=== PATIENT | female | born 1990 | race Caucasian/White ===

== ENCOUNTER 2018-04-21 17:41 | Inpatient (IN) | payer MEDICAID ==
[~2018-04-21] VITALS: Ht 167.6 cm; Wt 61.1 kg
[2018-04-21] MEDS ORDERED: ACETAMINOPHEN 500 MG TABLET ONE (18:17)
[2018-04-21] MEDS ORDERED: SODIUM CHLORIDE FLUSH 10ML SYR IVF ONE (18:30)
[2018-04-21] MEDS ORDERED: ACETAMINOPHEN 500 MG TABLET PO ONE (18:30)
--- NOTE | 2018-04-21 18:43 | NUR ---
Pt presents for erythma and swelling to L buttock x 3 days after injecting meth. Pt states chills [employer]. Mild fever.
[2018-04-21 19:00] LABS: ALBUMIN 2.7 g/dL (3.4-5.0); ANION GAP 8 mmol/L (5-15); CALCIUM 8.2 mg/dL (8.5-10.1); CHLORIDE 103 mmol/L (98-107)
[2018-04-21 19:24] LABS: MEAN CORPUSCULAR HGB CONC 30.4 g/dL (32.4-35.8); MEAN CORPUSCULAR VOLUME 62.3 fL (80-100); MEAN PLATELET VOLUME 6.8 fL (7.4-10.4); PLATELET COUNT 771 x10^3/uL (130-400); RED BLOOD COUNT 4.93 x10^6/uL (3.82-5.3); RED CELL DISTRIBUTION WIDTH 20.9 % (9.6-15.2)
[2018-04-21 19:25] LABS: MD YES
[2018-04-21 19:27] LABS: BAND#(MANUAL) 3.22 x10^3/uL; BANDS%(MANUAL) 23 % (0-7); BASOS#(MANUAL) 0.42 x10^3/uL (0-0.1); BASOS% (MANUAL) 3 % (0-1); EOS#(MANUAL) 0.14 x10^3/uL (0.0-0.4); EOS% (MANUAL) 1 % (1-7); LYMPHS% (MANUAL) 15 % (22-44); MONOS#(MANUAL) 0.98 x10^3/uL (0.3-2.7); MONOS% (MANUAL) 7 % (2-9); SEG#(MANUAL) 7.14 x10^3/uL (1.8-6.8); SEGS% (MANUAL) 51 % (42-75)
[2018-04-21 19:30] LABS: ANISOCYTOSIS 1+
[2018-04-21] MEDS ORDERED: VANCOMYCIN PER PHARMACY IV ONE (19:30)
[2018-04-21] MEDS ORDERED: CEFTRIAXONE PMX 1GM/50ML 50 ML IVPB ONE (19:30)
[2018-04-21 19:31] LABS: HYPOCHROMIA 2+; MICROCYTOSIS 2+
[2018-04-21 19:34] LABS: OVALOCYTES 1+; POLYCHROMASIA 1+
[2018-04-21 19:36] LABS: <PLATELET ESTIMATE> INCREASED; LARGE PLATELETS 1+; TOXIC GRAN 1+
[2018-04-21] MEDS ORDERED: CEFTRIAXONE PMX 1GM/50ML 50 ML ONE (19:56)
[2018-04-21] MEDS ORDERED: PHARMACOKINETIC CONSULTATION MC ONE (20:00)
[2018-04-21] MEDS ORDERED: VANCOMYCIN PMX 1GM/200ML 200 ML IV ONE (20:00)
--- NOTE | 2018-04-21 20:02 | NUR ---
REPORT RECEIVED FROM MINO MONIQUE, ASSUMING CARE AT THIS TIME. LAB AT BEDSIDE FOR SECOND CULTURE DRAW, ABX TO BE ADMIN AFTER DRAW. FAMILY AT BEDSIDE. CALL LIGHT WITHIN REACH. AWAITING OR
--- NOTE | 2018-04-21 20:34 | NUR ---
MD AT BEDSIDE FOR ASSESSMENT. AWARE OF LOW BP. ORDERS RECEIVED.
[2018-04-21] MEDS ORDERED: GUAIFENESIN/COD200MG-20MG/10ML LIQUID PO PRN (21:00)
[2018-04-21] MEDS ORDERED: hydrALAzine 20 MG/ML, 1ML IVPush PRN (21:00)
[2018-04-21] MEDS ORDERED: ONDANSETRON 2MG/ML, 2ML IVPush PRN (21:00)
[2018-04-21] MEDS ORDERED: SODIUM CHLORIDE 0.9% 1,000ML IVBOLUS ONE (21:00)
--- NOTE | 2018-04-21 21:04 | NUR ---
REPORT CALLED TO JEOVANNY RN, PT READY TO TRANSPORT UP TO FLOOR.
[2018-04-21 21:06] LABS: ABSOLUTE RETICS # 0.063 x10^6/uL (0.5-2.5); RED BLOOD COUNT 4.92 x10^6/uL (3.82-5.3); RETICULOCYTE COUNT % 1.27 % (0.5-1.5)
--- NOTE | 2018-04-21 21:13 | NUR ---
SURGERY MD TO BEDSIDE FOR ASSESSMENT. PLAN TO I&D AT BEDSIDE TOMORROW AM WITH POSSIBLE OR. BP INCREASING WITH BOLUS. VSS.
[2018-04-21 21:45] VITALS: BP 96/50
[2018-04-21] MEDS: D5%-0.45NACL+KCL 20MEQ 1,000 ML IV SCH (22:13)
[2018-04-21] MEDS: AMPICILLIN/SULBACTAM 3 GM in SODIUM CHLORIDE 0.9% 100 ML IV SCH (22:13)
[2018-04-21] MEDS: KETOROLAC 30 MG/1 ML IV PRN (22:14)
[2018-04-22] MEDS: NICOTINE 14MG/24 HR PATCH.TD24 TD SCH (00:56)
[2018-04-22 01:49] VITALS: BP 90/44
[2018-04-22] MEDS: AMPICILLIN/SULBACTAM 3 GM in SODIUM CHLORIDE 0.9% 100 ML IV SCH ×4 (04:06→23:01)
[2018-04-22] MEDS ORDERED: LIDOCAINE PF 2%, 5ML INFIL ONE (05:00)
[2018-04-22 05:51] LABS: MEAN CORPUSCULAR HEMOGLOBIN 19.2 pg (27.0-34.8); MEAN CORPUSCULAR HGB CONC 30.8 g/dL (32.4-35.8); MEAN CORPUSCULAR VOLUME 62.4 fL (80-100); PLATELET COUNT 595 x10^3/uL (130-400); RED BLOOD COUNT 4.59 x10^6/uL (3.82-5.3); RED CELL DISTRIBUTION WIDTH 21.2 % (9.6-15.2)
[2018-04-22 05:56] LABS: ANION GAP 6 mmol/L (5-15); CHLORIDE 108 mmol/L (98-107)
[2018-04-22 05:59] LABS: CREATININE 0.52 mg/dL (0.55-1.02)
[2018-04-22 06:01] LABS: MD YES
[2018-04-22 06:03] LABS: BAND#(MANUAL) 1.31 x10^3/uL; BANDS%(MANUAL) 8 % (0-7); BASOS#(MANUAL) 0.16 x10^3/uL (0-0.1); BASOS% (MANUAL) 1 % (0-1); EOS#(MANUAL) 1.31 x10^3/uL (0.0-0.4); EOS% (MANUAL) 8 % (1-7); LYMPH#(MANUAL) 3.12 x10^3/uL (1-3.4); LYMPHS% (MANUAL) 19 % (22-44); MONOS#(MANUAL) 0.82 x10^3/uL (0.3-2.7); MONOS% (MANUAL) 5 % (2-9); SEG#(MANUAL) 9.68 x10^3/uL (1.8-6.8); SEGS% (MANUAL) 59 % (42-75)
[2018-04-22 06:06] LABS: ANISOCYTOSIS 1+; HYPOCHROMIA 2+; MICROCYTOSIS 2+; OVALOCYTES 1+; POLYCHROMASIA 1+
[2018-04-22 06:08] LABS: <PLATELET ESTIMATE> INCREASED; LARGE PLATELETS 1+
[2018-04-22] MEDS: D5%-0.45NACL+KCL 20MEQ 1,000 ML IV SCH ×2 (06:42→20:20)
[2018-04-22 06:46] VITALS: BP 114/58
[2018-04-22] MEDS: KETOROLAC 30 MG/1 ML IV PRN ×2 (07:33→20:26)
[2018-04-22] MEDS ORDERED: ACETAMINOPHEN 325 MG TABLET PO PRN (09:30)
[2018-04-22] MEDS ORDERED: morphine SULFATE/PF 1 MG/ML, 10ML IV ONE (10:30)
[2018-04-22] MEDS ORDERED: MORPHINE SULFATE 4 MG/ML, 1ML ONE (10:55)
[2018-04-22 12:54] VITALS: BP 95/55
[2018-04-22] MEDS: IRON SUCROSE COMPLEX 100MG/5ML IV SCH (15:27)
[2018-04-22] MEDS: OXYcodone/APAP 5/325MG TABLET PO PRN (15:27)
[2018-04-22 19:49] VITALS: BP 98/56
[2018-04-23] MEDS: NICOTINE 14MG/24 HR PATCH.TD24 TD SCH (01:26)
[2018-04-23] MEDS: OXYcodone/APAP 5/325MG TABLET PO PRN ×3 (01:28→20:50)
[2018-04-23 02:40] VITALS: BP 95/59
[2018-04-23] MEDS: D5%-0.45NACL+KCL 20MEQ 1,000 ML IV SCH ×2 (04:25→10:57)
[2018-04-23] MEDS: AMPICILLIN/SULBACTAM 3 GM in SODIUM CHLORIDE 0.9% 100 ML IV SCH ×4 (04:26→22:54)
[2018-04-23 05:44] LABS: MEAN CORPUSCULAR HEMOGLOBIN 19.2 pg (27.0-34.8); MEAN CORPUSCULAR HGB CONC 30.5 g/dL (32.4-35.8); MEAN CORPUSCULAR VOLUME 62.9 fL (80-100); PLATELET COUNT 617 x10^3/uL (130-400); RED CELL DISTRIBUTION WIDTH 21.6 % (9.6-15.2)
[2018-04-23 06:38] LABS: MD YES
[2018-04-23 06:40] LABS: BAND#(MANUAL) 0.25 x10^3/uL; BANDS%(MANUAL) 2 % (0-7)
[2018-04-23 06:41] LABS: ANISOCYTOSIS 1+; EOS#(MANUAL) 0.37 x10^3/uL (0.0-0.4); EOS% (MANUAL) 3 % (1-7); LYMPH#(MANUAL) 2.21 x10^3/uL (1-3.4); LYMPHS% (MANUAL) 18 % (22-44); MICROCYTOSIS 2+; MONOS#(MANUAL) 0.62 x10^3/uL (0.3-2.7); MONOS% (MANUAL) 5 % (2-9); SEG#(MANUAL) 8.86 x10^3/uL (1.8-6.8); SEGS% (MANUAL) 72 % (42-75)
[2018-04-23 06:42] LABS: <PLATELET ESTIMATE> INCREASED; <PLT MORPHOLOGY> NORMAL PLT MORPH; HYPOCHROMIA 2+; OVALOCYTES 1+; POLYCHROMASIA 1+
[2018-04-23 07:30] VITALS: BP 95/58
[2018-04-23] MEDS ORDERED: MORPHINE SULFATE 4 MG/ML, 1ML ONE (13:05)
[2018-04-23] MEDS: MORPHINE SULFATE 4 MG/ML, 1ML IVPush PRN (13:07)
[2018-04-23 14:15] VITALS: BP 101/62
[2018-04-23] MEDS: IRON SUCROSE COMPLEX 100MG/5ML IV SCH (16:17)
[2018-04-23] MEDS ORDERED: PHARMACOKINETIC MONITORING MC PRN (16:30)
[2018-04-23] MEDS ORDERED: PHARMACOKINETIC CONSULTATION MC ONE (16:30)
[2018-04-23] MEDS ORDERED: VANCOMYCIN PER PHARMACY MC PRN (16:30)
[2018-04-23] MEDS: VANCOMYCIN 1,100 MG in SODIUM CHLORIDE 0.9% 250 ML IV SCH (17:34)
[2018-04-23 20:00] VITALS: BP_SYST 148; BP_SYST 95; BP_DIAS 58; BP_DIAS 70
[2018-04-23] MEDS: DOCUSATE 100 MG CAPSULE PO PRN (20:55)
[2018-04-24] MEDS: NICOTINE 14MG/24 HR PATCH.TD24 TD SCH (00:29)
[2018-04-24] MEDS: VANCOMYCIN 1,100 MG in SODIUM CHLORIDE 0.9% 250 ML IV SCH ×2 (00:30→12:36)
[2018-04-24 02:02] VITALS: BP 90/50
[2018-04-24] MEDS: AMPICILLIN/SULBACTAM 3 GM in SODIUM CHLORIDE 0.9% 100 ML IV SCH ×4 (05:05→20:32)
[2018-04-24 06:03] LABS: MEAN CORPUSCULAR HEMOGLOBIN 19.2 pg (27.0-34.8); MEAN CORPUSCULAR HGB CONC 30.5 g/dL (32.4-35.8); MEAN CORPUSCULAR VOLUME 62.8 fL (80-100); MEAN PLATELET VOLUME 6.9 fL (7.4-10.4); PLATELET COUNT 670 x10^3/uL (130-400); RED BLOOD COUNT 3.98 x10^6/uL (3.82-5.3)
[2018-04-24 06:10] LABS: CHLORIDE 111 mmol/L (98-107)
[2018-04-24 06:22] LABS: ALANINE AMINOTRANSFERASE 616 U/L (12-78); ALBUMIN 1.9 g/dL (3.4-5.0); ALKALINE PHOSPHATASE 843 U/L (45-117); ANION GAP 8 mmol/L (5-15); BILIRUBIN,TOTAL 1.5 mg/dL (0.2-1.0); CALCIUM 7.9 mg/dL (8.5-10.1); CREATININE 0.38 mg/dL (0.55-1.02); TOTAL PROTEIN 5.6 g/dL (6.4-8.2)
[2018-04-24 06:34] LABS: MD YES
[2018-04-24 06:36] LABS: BAND#(MANUAL) 0.32 x10^3/uL; BANDS%(MANUAL) 3 % (0-7); EOS#(MANUAL) 0.85 x10^3/uL (0.0-0.4); EOS% (MANUAL) 8 % (1-7); LYMPH#(MANUAL) 2.54 x10^3/uL (1-3.4); LYMPHS% (MANUAL) 24 % (22-44); METAMYELOCYTES# (MANUAL) 0.11 x10^3/uL (0-0); METAMYELOCYTES% (MANUAL) 1 % (0-1); MONOS#(MANUAL) 0.74 x10^3/uL (0.3-2.7); MONOS% (MANUAL) 7 % (2-9); SEG#(MANUAL) 6.04 x10^3/uL (1.8-6.8); SEGS% (MANUAL) 57 % (42-75)
[2018-04-24 06:37] LABS: <PLATELET ESTIMATE> INCREASED; <PLT MORPHOLOGY> NORMAL PLT MORPH; ANISOCYTOSIS 1+; HYPOCHROMIA 1+; MICROCYTOSIS 2+; OVALOCYTES 1+; POLYCHROMASIA 1+
[2018-04-24] MEDS ORDERED: MAGNESIUM SULFATE PMX 2GM/50ML 50 ML IV ONE (07:00)
[2018-04-24 08:27] VITALS: BP 87/43
[2018-04-24] MEDS: MORPHINE SULFATE 4 MG/ML, 1ML IVPush PRN (12:36)
[2018-04-24 13:22] VITALS: BP 110/67
[2018-04-24] MEDS: IRON SUCROSE COMPLEX 100MG/5ML IV SCH (14:28)
[2018-04-24] MEDS: OXYcodone/APAP 5/325MG TABLET PO PRN (16:11)
[2018-04-24 19:08] VITALS: BP 90/43
[2018-04-24] MEDS: KETOROLAC 30 MG/1 ML IV PRN (20:48)
[2018-04-25] VITALS (7 sets, daily range): BP systolic 83–105; BP diastolic 42–60
[2018-04-25] MEDS: NICOTINE 14MG/24 HR PATCH.TD24 TD SCH ×2 (00:12→21:47)
[2018-04-25] MEDS: VANCOMYCIN 1,100 MG in SODIUM CHLORIDE 0.9% 250 ML IV SCH ×2 (00:13→12:50)
[2018-04-25] MEDS: OXYcodone/APAP 5/325MG TABLET PO PRN ×2 (00:13→08:34)
[2018-04-25] MEDS: AMPICILLIN/SULBACTAM 3 GM in SODIUM CHLORIDE 0.9% 100 ML IV SCH ×2 (02:30→08:34)
[2018-04-25] MEDS ORDERED: SODIUM CHLORIDE 0.9% 1,000ML IVBOLUS ONE ×2 (03:00→10:00)
[2018-04-25 06:32] LABS: MEAN CORPUSCULAR HEMOGLOBIN 18.9 pg (27.0-34.8); MEAN CORPUSCULAR HGB CONC 30.2 g/dL (32.4-35.8); MEAN CORPUSCULAR VOLUME 62.7 fL (80-100); MEAN PLATELET VOLUME 6.7 fL (7.4-10.4); PLATELET COUNT 669 x10^3/uL (130-400); RED BLOOD COUNT 4.04 x10^6/uL (3.82-5.3); RED CELL DISTRIBUTION WIDTH 21.6 % (9.6-15.2)
[2018-04-25 06:38] LABS: ALANINE AMINOTRANSFERASE 720 U/L (12-78); ALBUMIN 1.7 g/dL (3.4-5.0); ANION GAP 5 mmol/L (5-15); CALCIUM 7.4 mg/dL (8.5-10.1); CHLORIDE 115 mmol/L (98-107)
[2018-04-25 06:46] LABS: MD YES
[2018-04-25 06:48] LABS: BAND#(MANUAL) 0.32 x10^3/uL; BANDS%(MANUAL) 3 % (0-7); EOS#(MANUAL) 0.74 x10^3/uL (0.0-0.4); EOS% (MANUAL) 7 % (1-7); LYMPH#(MANUAL) 3.07 x10^3/uL (1-3.4); LYMPHS% (MANUAL) 29 % (22-44); METAMYELOCYTES# (MANUAL) 0.11 x10^3/uL (0-0); METAMYELOCYTES% (MANUAL) 1 % (0-1); MONOS#(MANUAL) 0.85 x10^3/uL (0.3-2.7); MONOS% (MANUAL) 8 % (2-9); NRBC % (MANUAL) 2 % (0-1); SEG#(MANUAL) 5.51 x10^3/uL (1.8-6.8); SEGS% (MANUAL) 52 % (42-75)
[2018-04-25 06:49] LABS: <PLATELET ESTIMATE> INCREASED; ANISOCYTOSIS 1+; HYPOCHROMIA 1+; MICROCYTOSIS 1+; OVALOCYTES 1+; POLYCHROMASIA 1+
[2018-04-25 06:50] LABS: LARGE PLATELETS 1+
[2018-04-25 06:53] LABS: ALKALINE PHOSPHATASE 960 U/L (45-117); BILIRUBIN,TOTAL 1.6 mg/dL (0.2-1.0); CREATININE 0.37 mg/dL (0.55-1.02); TOTAL PROTEIN 5.2 g/dL (6.4-8.2)
[2018-04-25] MEDS: MORPHINE SULFATE 4 MG/ML, 1ML IVPush PRN (10:28)
[2018-04-25] MEDS ORDERED: SODIUM CHLORIDE 0.9%, 500ML IVBOLUS ONE (10:30)
[2018-04-25 11:01] LABS: INTERNATIONAL NORMALIZED RATIO 1.1 (0.93-1.1); PROTHROMBIN TIME 11.6 Seconds (9.6-11.5)
[2018-04-25] MEDS: SODIUM CHLORIDE 0.9% 1,000 ML IV SCH (17:39)
[2018-04-25] MEDS: OXYcodone IR 5MG TABLET PO PRN (21:47)
[2018-04-25] MEDS: DOCUSATE 100 MG CAPSULE PO PRN (21:47)
[2018-04-26] MEDS: SODIUM CHLORIDE 0.9% 1,000 ML IV SCH ×3 (00:35→14:56)
[2018-04-26 02:28] VITALS: BP 102/50
[2018-04-26] MEDS: OXYcodone IR 5MG TABLET PO PRN ×3 (04:08→21:21)
[2018-04-26] MEDS ORDERED: VANCOMYCIN PMX 1GM/200ML 200 ML IVPB SCH (05:00)
[2018-04-26 05:17] LABS: MEAN CORPUSCULAR HGB CONC 31.3 g/dL (32.4-35.8); MEAN CORPUSCULAR VOLUME 63.8 fL (80-100); PLATELET COUNT 689 x10^3/uL (130-400); RED BLOOD COUNT 4.32 x10^6/uL (3.82-5.3); RED CELL DISTRIBUTION WIDTH 21.5 % (9.6-15.2)
[2018-04-26 05:22] LABS: INTERNATIONAL NORMALIZED RATIO 1.06 (0.93-1.1); PROTHROMBIN TIME 11.2 Seconds (9.6-11.5)
[2018-04-26 05:25] LABS: ALBUMIN 2.1 g/dL (3.4-5.0); ANION GAP 3 mmol/L (5-15); CALCIUM 7.8 mg/dL (8.5-10.1); CHLORIDE 109 mmol/L (98-107)
[2018-04-26 05:50] LABS: ALANINE AMINOTRANSFERASE 834 U/L (12-78); ALKALINE PHOSPHATASE 1166 U/L (45-117); BILIRUBIN,TOTAL 1.2 mg/dL (0.2-1.0); TOTAL PROTEIN 6.1 g/dL (6.4-8.2)
[2018-04-26 05:52] LABS: MD YES
[2018-04-26 05:54] LABS: BAND#(MANUAL) 0.53 x10^3/uL; BANDS%(MANUAL) 4 % (0-7); METAMYELOCYTES# (MANUAL) 0.27 x10^3/uL (0-0); METAMYELOCYTES% (MANUAL) 2 % (0-1); MONOS% (MANUAL) 6 % (2-9); REACTIVE LYMPHS # (MANUAL) 0.13 x10^3/uL (0-0); REACTIVE LYMPHS % (MANUAL) 1 % (0-0); SEG#(MANUAL) 5.32 x10^3/uL (1.8-6.8); SEGS% (MANUAL) 40 % (42-75)
[2018-04-26 05:56] LABS: EOS% (MANUAL) 9 % (1-7); LYMPH#(MANUAL) 5.05 x10^3/uL (1-3.4); LYMPHS% (MANUAL) 38 % (22-44)
[2018-04-26 05:57] LABS: ANISOCYTOSIS 1+; HYPOCHROMIA 1+; MICROCYTOSIS 2+; POLYCHROMASIA 1+; TARGET CELLS 1+
[2018-04-26 05:58] LABS: <PLATELET ESTIMATE> INCREASED; <PLT MORPHOLOGY> NORMAL PLT MORPH
[2018-04-26 06:00] LABS: ACETAMINOPHEN < 2 mcg/mL (10-30)
[2018-04-26 09:09] VITALS: BP 87/48
[2018-04-26] MEDS: MORPHINE SULFATE 4 MG/ML, 1ML IVPush PRN (14:56)
[2018-04-26 15:06] VITALS: BP 91/50
[2018-04-26] MEDS ORDERED: SODIUM CHLORIDE 0.9% 1,000 ML IV SCH (17:00)
[2018-04-26] MEDS: VANCOMYCIN 1,200 MG in SODIUM CHLORIDE 0.9% 250 ML IV SCH (17:03)
[2018-04-26 21:01] VITALS: BP 92/52
[2018-04-26] MEDS: DOCUSATE 100 MG CAPSULE PO PRN (21:21)
[2018-04-26] MEDS: NICOTINE 14MG/24 HR PATCH.TD24 TD SCH (21:21)
[2018-04-27 02:45] VITALS: BP 98/50
[2018-04-27] MEDS: VANCOMYCIN 1,200 MG in SODIUM CHLORIDE 0.9% 250 ML IV SCH ×2 (04:45→22:05)
[2018-04-27] MEDS: OXYcodone IR 5MG TABLET PO PRN ×2 (04:45→12:01)
[2018-04-27 08:02] LABS: ALANINE AMINOTRANSFERASE 563 U/L (12-78); ALBUMIN 2.1 g/dL (3.4-5.0); ANION GAP 4 mmol/L (5-15); CALCIUM 7.9 mg/dL (8.5-10.1); CHLORIDE 112 mmol/L (98-107); CREATININE 0.42 mg/dL (0.55-1.02)
[2018-04-27 08:04] LABS: ALKALINE PHOSPHATASE 990 U/L (45-117); BILIRUBIN,TOTAL 0.5 mg/dL (0.2-1.0); TOTAL PROTEIN 5.9 g/dL (6.4-8.2)
[2018-04-27 08:05] LABS: MEAN CORPUSCULAR HEMOGLOBIN 19.8 pg (27.0-34.8); MEAN CORPUSCULAR HGB CONC 30.4 g/dL (32.4-35.8); MEAN CORPUSCULAR VOLUME 65.1 fL (80-100); MEAN PLATELET VOLUME 6.7 fL (7.4-10.4); PLATELET COUNT 677 x10^3/uL (130-400); RED BLOOD COUNT 3.85 x10^6/uL (3.82-5.3); RED CELL DISTRIBUTION WIDTH 21.4 % (9.6-15.2)
[2018-04-27] MEDS ORDERED: SODIUM CHLORIDE 0.9% 1,000 ML IV SCH (09:00)
[2018-04-27 09:03] LABS: MD YES
[2018-04-27 09:14] LABS: <PLATELET ESTIMATE> INCREASED; <PLT MORPHOLOGY> NORMAL PLT MORPH; ANISOCYTOSIS 1+; BAND#(MANUAL) 0.73 x10^3/uL; BANDS%(MANUAL) 6 % (0-7); EOS#(MANUAL) 0.49 x10^3/uL (0.0-0.4); EOS% (MANUAL) 4 % (1-7); LYMPH#(MANUAL) 4.39 x10^3/uL (1-3.4); LYMPHS% (MANUAL) 36 % (22-44); MICROCYTOSIS 2+; POLYCHROMASIA 1+; SEG#(MANUAL) 6.59 x10^3/uL (1.8-6.8); SEGS% (MANUAL) 54 % (42-75)
[2018-04-27 09:15] LABS: HYPOCHROMIA 2+; OVALOCYTES 1+; SCHISTOCYTES 1+; TARGET CELLS 1+
[2018-04-27 10:14] VITALS: BP 96/50
[2018-04-27 12:20] VITALS: BP 114/78
[2018-04-27] MEDS: MORPHINE SULFATE 4 MG/ML, 1ML IVPush PRN ×2 (13:58→22:09)
[2018-04-27 14:30] VITALS: BP 119/78
[2018-04-27 15:00] VITALS: BP 109/62
[2018-04-27 19:17] VITALS: BP 114/69
[2018-04-27] MEDS: NICOTINE 21 MG/24 HR PATCH.TD24 TD SCH (22:05)
[2018-04-28] MEDS: OXYcodone IR 5MG TABLET PO PRN ×2 (01:59→11:12)
[2018-04-28 03:16] VITALS: BP 111/69
[2018-04-28 05:58] LABS: CHLORIDE 109 mmol/L (98-107)
[2018-04-28 06:04] LABS: MEAN CORPUSCULAR HEMOGLOBIN 20.8 pg (27.0-34.8); MEAN CORPUSCULAR HGB CONC 31.4 g/dL (32.4-35.8); MEAN CORPUSCULAR VOLUME 66.2 fL (80-100); RED BLOOD COUNT 3.95 x10^6/uL (3.82-5.3); RED CELL DISTRIBUTION WIDTH 20.7 % (9.6-15.2)
[2018-04-28 06:34] LABS: ALANINE AMINOTRANSFERASE 465 U/L (12-78); ALBUMIN 2.5 g/dL (3.4-5.0); ALKALINE PHOSPHATASE 903 U/L (45-117); ANION GAP 7 mmol/L (5-15); BILIRUBIN,TOTAL 0.5 mg/dL (0.2-1.0); CALCIUM 8.5 mg/dL (8.5-10.1); CREATININE 0.59 mg/dL (0.55-1.02); TOTAL PROTEIN 6.8 g/dL (6.4-8.2)
[2018-04-28 06:42] LABS: MD YES; MEAN PLATELET VOLUME 6.9 fL (7.4-10.4); PLATELET COUNT 809 x10^3/uL (130-400)
[2018-04-28 06:44] LABS: BAND#(MANUAL) 0.13 x10^3/uL; BANDS%(MANUAL) 1 % (0-7); EOS#(MANUAL) 0.92 x10^3/uL (0.0-0.4); EOS% (MANUAL) 7 % (1-7); LYMPHS% (MANUAL) 29 % (22-44); MONOS#(MANUAL) 0.66 x10^3/uL (0.3-2.7); MONOS% (MANUAL) 5 % (2-9); SEGS% (MANUAL) 58 % (42-75)
[2018-04-28 06:45] LABS: ANISOCYTOSIS 1+; HYPOCHROMIA 2+; MICROCYTOSIS 2+; POLYCHROMASIA 1+
[2018-04-28 06:46] LABS: <PLATELET ESTIMATE> INCREASED; <PLT MORPHOLOGY> NORMAL PLT MORPH; TARGET CELLS 1+
[2018-04-28 08:39] VITALS: BP 117/80
[2018-04-28] MEDS: VANCOMYCIN 1,200 MG in SODIUM CHLORIDE 0.9% 250 ML IV SCH (10:09)
[2018-04-28 15:17] VITALS: BP 102/61
[2018-04-28] MEDS: MORPHINE SULFATE 4 MG/ML, 1ML IVPush PRN (16:41)
[2018-04-28 19:08] VITALS: BP 116/74
[2018-04-28] MEDS: NICOTINE 21 MG/24 HR PATCH.TD24 TD SCH (20:13)
[2018-04-28] MEDS ORDERED: SULFAMETH./TRIMETHOPRIM DS 800MG/160MG TABLET PO SCH (21:00)
[2018-04-29 01:47] VITALS: BP 128/87
[2018-04-29] MEDS: OXYcodone IR 5MG TABLET PO PRN ×3 (03:38→20:04)
[2018-04-29 05:49] LABS: CHLORIDE 106 mmol/L (98-107); MEAN CORPUSCULAR HEMOGLOBIN 20.5 pg (27.0-34.8); MEAN CORPUSCULAR HGB CONC 30.6 g/dL (32.4-35.8); MEAN CORPUSCULAR VOLUME 66.8 fL (80-100); RED BLOOD COUNT 4.47 x10^6/uL (3.82-5.3); RED CELL DISTRIBUTION WIDTH 20.2 % (9.6-15.2)
[2018-04-29 06:00] LABS: ALANINE AMINOTRANSFERASE 397 U/L (12-78); ALBUMIN 3.1 g/dL (3.4-5.0); ALKALINE PHOSPHATASE 879 U/L (45-117); BILIRUBIN,TOTAL 0.9 mg/dL (0.2-1.0); CALCIUM 8.9 mg/dL (8.5-10.1); TOTAL PROTEIN 8.1 g/dL (6.4-8.2)
[2018-04-29 06:18] LABS: MEAN PLATELET VOLUME 6.6 fL (7.4-10.4)
[2018-04-29 06:21] LABS: PLATELET COUNT 1007 x10^3/uL (130-400)
[2018-04-29 06:24] LABS: MD YES
[2018-04-29 06:28] LABS: ANISOCYTOSIS 2+; BASOS#(MANUAL) 0.17 x10^3/uL (0-0.1); BASOS% (MANUAL) 1 % (0-1); EOS#(MANUAL) 0.66 x10^3/uL (0.0-0.4); EOS% (MANUAL) 4 % (1-7); LYMPH#(MANUAL) 5.31 x10^3/uL (1-3.4); LYMPHS% (MANUAL) 32 % (22-44); MONOS% (MANUAL) 3 % (2-9); REACTIVE LYMPHS # (MANUAL) 0.17 x10^3/uL (0-0); REACTIVE LYMPHS % (MANUAL) 1 % (0-0); SEG#(MANUAL) 9.79 x10^3/uL (1.8-6.8); SEGS% (MANUAL) 59 % (42-75)
[2018-04-29 06:29] LABS: HYPOCHROMIA 2+; MICROCYTOSIS 2+; OVALOCYTES 1+; POLYCHROMASIA 1+; TARGET CELLS 1+
[2018-04-29 06:30] LABS: <PLATELET ESTIMATE> INCREASED; <PLT MORPHOLOGY> NORMAL PLT MORPH
[2018-04-29 07:00] LABS: ANION GAP 8 mmol/L (5-15)
[2018-04-29] MEDS ORDERED: VANCOMYCIN PER PHARMACY MC PRN (08:00)
[2018-04-29] MEDS ORDERED: ENOXAPARIN 40 MG/0.4 ML SQ SCH (08:00)
[2018-04-29 08:11] LABS: HCT (SEDRATE) 29.8 % (34.6-47.8)
[2018-04-29] MEDS ORDERED: PHARMACOKINETIC MONITORING MC PRN (08:30)
[2018-04-29 08:33] VITALS: BP 104/62
[2018-04-29] MEDS ORDERED: ASPIRIN 81 MG TABLET CHEW PO SCH (09:00)
[2018-04-29] MEDS ORDERED: VANCOMYCIN 1,200 MG in SODIUM CHLORIDE 0.9% 250 ML IV SCH (09:00)
[2018-04-29] MEDS ORDERED: NICOTINE 21 MG/24 HR PATCH.TD24 TD ONE (12:00)
[2018-04-29] MEDS: LINEZOLID 600 MG TABLET PO SCH ×2 (12:47→20:04)
[2018-04-29 15:05] VITALS: BP 107/77
[2018-04-29] MEDS: FERROUS SULFATE 325 MG TABLET PO SCH ×2 (16:19→16:27)
[2018-04-29] MEDS: NICOTINE 21 MG/24 HR PATCH.TD24 TD SCH (20:04)
[2018-04-29 20:19] VITALS: BP 94/62
[2018-04-30 05:50] LABS: ABSOLUTE RETICS # 0.187 x10^6/uL (0.5-2.5); RED BLOOD COUNT 4.2 x10^6/uL (3.82-5.3); RETICULOCYTE COUNT % 4.46 % (0.5-1.5)
[2018-04-30 05:54] LABS: MEAN CORPUSCULAR HEMOGLOBIN 20.7 pg (27.0-34.8); MEAN CORPUSCULAR HGB CONC 30.4 g/dL (32.4-35.8); MEAN PLATELET VOLUME 6.6 fL (7.4-10.4); PLATELET COUNT 931 x10^3/uL (130-400); RED BLOOD COUNT 4.15 x10^6/uL (3.82-5.3); RED CELL DISTRIBUTION WIDTH 19.5 % (9.6-15.2)
[2018-04-30 06:10] LABS: CHLORIDE 108 mmol/L (98-107)
[2018-04-30 06:14] LABS: MD YES
[2018-04-30 06:16] LABS: BAND#(MANUAL) 0.09 x10^3/uL; BANDS%(MANUAL) 1 % (0-7)
[2018-04-30 06:17] LABS: EOS#(MANUAL) 0.36 x10^3/uL (0.0-0.4); EOS% (MANUAL) 4 % (1-7); MONOS#(MANUAL) 0.36 x10^3/uL (0.3-2.7); MONOS% (MANUAL) 4 % (2-9)
[2018-04-30 06:18] LABS: ANISOCYTOSIS 2+; HYPOCHROMIA 2+; LYMPH#(MANUAL) 3.74 x10^3/uL (1-3.4); LYMPHS% (MANUAL) 42 % (22-44); MICROCYTOSIS 2+; POLYCHROMASIA 1+; SEG#(MANUAL) 4.36 x10^3/uL (1.8-6.8); SEGS% (MANUAL) 49 % (42-75)
[2018-04-30 06:19] LABS: <PLATELET ESTIMATE> INCREASED; <PLT MORPHOLOGY> NORMAL PLT MORPH; TARGET CELLS 1+
[2018-04-30 06:20] LABS: OVALOCYTES 1+
[2018-04-30 06:46] LABS: ALANINE AMINOTRANSFERASE 254 U/L (12-78); ALKALINE PHOSPHATASE 667 U/L (45-117); ANION GAP 7 mmol/L (5-15); BILIRUBIN,TOTAL 0.4 mg/dL (0.2-1.0); CALCIUM 8.6 mg/dL (8.5-10.1); CREATININE 0.59 mg/dL (0.55-1.02); FOLATE LEVEL 17.3 ng/mL (3.1-17.5); TOTAL PROTEIN 7.1 g/dL (6.4-8.2)
[2018-04-30] MEDS: FERROUS SULFATE 325 MG TABLET PO SCH ×3 (07:15→17:06)
[2018-04-30] MEDS: LINEZOLID 600 MG TABLET PO SCH ×2 (08:20→20:09)
[2018-04-30 08:22] VITALS: BP 109/64
[2018-04-30] MEDS: OXYcodone IR 5MG TABLET PO PRN ×2 (11:08→17:06)
[2018-04-30] MEDS: MORPHINE SULFATE 4 MG/ML, 1ML IVPush PRN (11:37)
[2018-04-30 13:15] VITALS: BP 105/67
[2018-04-30] MEDS ORDERED: FERR-51 PO (14:45)
[2018-04-30 19:46] VITALS: BP 113/72
[2018-04-30] MEDS: NICOTINE 21 MG/24 HR PATCH.TD24 TD SCH (20:09)
[2018-05-01 03:12] VITALS: BP 104/70
[2018-05-01] MEDS: OXYcodone IR 5MG TABLET PO PRN ×3 (03:12→20:29)
[2018-05-01 06:38] LABS: ALBUMIN 3.5 g/dL (3.4-5.0); CALCIUM 9.2 mg/dL (8.5-10.1); CHLORIDE 108 mmol/L (98-107)
[2018-05-01 06:39] LABS: MEAN CORPUSCULAR HEMOGLOBIN 21.1 pg (27.0-34.8); MEAN CORPUSCULAR HGB CONC 30.7 g/dL (32.4-35.8); MEAN CORPUSCULAR VOLUME 68.6 fL (80-100); MEAN PLATELET VOLUME 6.5 fL (7.4-10.4); RED CELL DISTRIBUTION WIDTH 20.4 % (9.6-15.2)
[2018-05-01 06:40] LABS: MD YES; PLATELET COUNT 1079 x10^3/uL (130-400)
[2018-05-01 06:42] LABS: ALANINE AMINOTRANSFERASE 215 U/L (12-78); ALKALINE PHOSPHATASE 633 U/L (45-117); ANION GAP 2 mmol/L (5-15); BILIRUBIN,TOTAL 0.5 mg/dL (0.2-1.0); CREATININE 0.58 mg/dL (0.55-1.02); TOTAL PROTEIN 8.3 g/dL (6.4-8.2)
[2018-05-01 07:28] LABS: <PLATELET ESTIMATE> INCREASED; ANISOCYTOSIS 2+; BANDS%(MANUAL) 1 % (0-7); BASOS% (MANUAL) 1 % (0-1); EOS#(MANUAL) 0.38 x10^3/uL (0.0-0.4); EOS% (MANUAL) 4 % (1-7); HYPOCHROMIA 2+; LYMPH#(MANUAL) 4.13 x10^3/uL (1-3.4); LYMPHS% (MANUAL) 43 % (22-44); MICROCYTOSIS 2+; MONOS#(MANUAL) 0.67 x10^3/uL (0.3-2.7); MONOS% (MANUAL) 7 % (2-9); POLYCHROMASIA 1+; SEG#(MANUAL) 4.22 x10^3/uL (1.8-6.8); SEGS% (MANUAL) 44 % (42-75); TARGET CELLS 1+
[2018-05-01 07:29] LABS: LARGE PLATELETS 1+
[2018-05-01] MEDS: LINEZOLID 600 MG TABLET PO SCH ×2 (09:01→20:30)
[2018-05-01] MEDS: FERROUS SULFATE 325 MG TABLET PO SCH ×3 (09:01→16:44)
[2018-05-01 09:36] VITALS: BP 106/51
[2018-05-01] MEDS: MORPHINE SULFATE 4 MG/ML, 1ML IVPush PRN (10:34)
[2018-05-01 13:21] VITALS: BP 112/68
[2018-05-01] MEDS: NICOTINE 21 MG/24 HR PATCH.TD24 TD SCH (20:29)
[2018-05-01 20:32] VITALS: BP 100/54
[2018-05-02] MEDS: OXYcodone IR 5MG TABLET PO PRN ×3 (03:22→16:59)
[2018-05-02 03:28] VITALS: BP 106/68
[2018-05-02] MEDS ORDERED: ENOXAPARIN 40 MG/0.4 ML SQ SCH (03:30)
[2018-05-02 06:18] LABS: MEAN CORPUSCULAR HEMOGLOBIN 21.4 pg (27.0-34.8); MEAN CORPUSCULAR HGB CONC 30.9 g/dL (32.4-35.8); MEAN CORPUSCULAR VOLUME 69.3 fL (80-100); MEAN PLATELET VOLUME 6.4 fL (7.4-10.4); RED BLOOD COUNT 4.46 x10^6/uL (3.82-5.3); RED CELL DISTRIBUTION WIDTH 20.9 % (9.6-15.2)
[2018-05-02 06:19] LABS: PLATELET COUNT 1175 x10^3/uL (130-400)
[2018-05-02 06:40] LABS: CHLORIDE 107 mmol/L (98-107)
[2018-05-02 06:52] LABS: ALANINE AMINOTRANSFERASE 172 U/L (12-78); ALBUMIN 3.5 g/dL (3.4-5.0); ALKALINE PHOSPHATASE 547 U/L (45-117); ANION GAP 6 mmol/L (5-15); BASOPHILS # (AUTO) 0.04 x10^3/uL (0-0.1); BASOPHILS % (AUTO) 0 % (0-1); BILIRUBIN,TOTAL 0.6 mg/dL (0.2-1.0); EOSINOPHILS # (AUTO) 0.49 x10^3/uL (0-0.4); EOSINOPHILS % (AUTO) 4 % (1-7); LYMPHOCYTES # (AUTO) 3.16 x10^3/uL (1-3.4); LYMPHOCYTES % (AUTO) 24 % (22-44); MD SCAN; MONOCYTES # (AUTO) 0.44 x10^3/uL (0.2-0.8); MONOCYTES % (AUTO) 3 % (2-9); NEUTROPHILS # (AUTO) 9.01 x10^3/uL (1.8-6.8); NEUTROPHILS % (AUTO) 69 % (42-75); TOTAL PROTEIN 8.1 g/dL (6.4-8.2)
[2018-05-02 07:23] VITALS: BP 99/63
[2018-05-02] MEDS: LINEZOLID 600 MG TABLET PO SCH (09:52)
[2018-05-02] MEDS: FERROUS SULFATE 325 MG TABLET PO SCH ×3 (09:52→16:59)
[2018-05-02] MEDS ORDERED: LINE600T33 PO (14:19)
[2018-05-02 14:34] VITALS: BP 113/70
== END 2018-05-02 17:20 | disposition home or self-care (01) | DRG 854 ==
LOC: ED 19:31 → EDIP 19:47 → 4NOR 21:36
PROVIDERS: ADMIT Internal Medicine; ATTEND Internal Medicine
PROC: 0J990ZZ Drainage of Buttock Subcutaneous Tissue and Fascia, Open Approach (ICD-10-PCS; principal; 2018-04-22)
DX: A41.01 Sepsis due to Methicillin susceptible Staphylococcus aureus (principal); B17.10 Acute hepatitis C without hepatic coma; E44.0 Moderate protein-calorie malnutrition; K76.6 Portal hypertension; L02.31 Cutaneous abscess of buttock; L03.116 Cellulitis of left lower limb; M60.009 Infective myositis, unspecified site; B27.90 Infectious mononucleosis, unspecified without complication; D47.3 Essential (hemorrhagic) thrombocythemia; D50.9 Iron deficiency anemia, unspecified; Z68.21 Body mass index [BMI] 21.0-21.9, adult; E87.6 Hypokalemia; F15.10 Other stimulant abuse, uncomplicated; F17.200 Nicotine dependence, unspecified, uncomplicated; Z59.0 Homelessness; Z79.82 Long term (current) use of aspirin; Z80.0 Family history of malignant neoplasm of digestive organs; Z87.01 Personal history of pneumonia (recurrent); Z87.09 Personal history of other diseases of the respiratory system; Z88.6 Allergy status to analgesic agent; Z90.49 Acquired absence of other specified parts of digestive tract
CPT/HCPCS: 0399T; 36415; 72192; 74181; 76700; 78227; 80048; 80053; 80202; 80307; 81270; 82040; 82607; 82728; 82746; 83540; 83550; 83605; 83615; 83690; 83735; 84100; 84443; 85025; 85045; 85610; 85651; 86038; 86140; 86480; 86706; 86709; 86803; 87040; 87070; 87075; 87077; 87147; 87186; 87205; 87340; 87521; 87806; 93306; 96365; 96367; G0378; J0295; J0696; J1650; J1756; J1885; J2274; J2405; J3370; A9537; C9898; G0475; J3475; J3480; J7030; J7040; J7050

== ENCOUNTER 2018-05-31 21:08 | Emergency (ER) | payer MEDICAID ==
[~2018-05-31] VITALS: Ht 167.6 cm; Wt 54.6 kg
[~2018-05-31 21:08] MED LIST: FERR-51 PO; LINE600T33 PO
[2018-05-31 21:15] VITALS: BP 111/72
[2018-05-31 21:57] LABS: MEAN CORPUSCULAR HEMOGLOBIN 22.6 pg (27.0-34.8); MEAN CORPUSCULAR HGB CONC 31.3 g/dL (32.4-35.8); MEAN CORPUSCULAR VOLUME 72.1 fL (80-100); MEAN PLATELET VOLUME 6.4 fL (7.4-10.4); PLATELET COUNT 899 x10^3/uL (130-400); RED BLOOD COUNT 4.44 x10^6/uL (3.82-5.3); RED CELL DISTRIBUTION WIDTH 31.4 % (9.6-15.2)
[2018-05-31 22:08] LABS: ALBUMIN 2.6 g/dL (3.4-5.0); ANION GAP 4 mmol/L (5-15); CALCIUM 8.5 mg/dL (8.5-10.1); CHLORIDE 107 mmol/L (98-107); CREATININE 0.52 mg/dL (0.55-1.02)
[2018-05-31 22:17] LABS: BASOPHILS # (AUTO) 0.18 x10^3/uL (0-0.1); BASOPHILS % (AUTO) 2 % (0-1); EOSINOPHILS # (AUTO) 0.32 x10^3/uL (0-0.4); EOSINOPHILS % (AUTO) 3 % (1-7); LYMPHOCYTES % (AUTO) 33 % (22-44); MD SCAN; MONOCYTES # (AUTO) 1.49 x10^3/uL (0.2-0.8); MONOCYTES % (AUTO) 12 % (2-9); NEUTROPHILS # (AUTO) 6.32 x10^3/uL (1.8-6.8); NEUTROPHILS % (AUTO) 51 % (42-75)
[2018-05-31] MEDS ORDERED: LIDOCAINE-MPF 1%, 5ML ONE (22:28)
--- NOTE | 2018-05-31 23:03 | NUR ---
Patient/Caregiver given discharge instructions and they have confirmed that they understand the instructions. Patient ambulatory with steady gait.
== END 2018-05-31 23:05 | disposition home or self-care (01) ==
LOC: ED 22:34
DX: L02.415 Cutaneous abscess of right lower limb (principal)
CPT/HCPCS: 10060; 36415; 80048; 82040; 85025; 99284

== ENCOUNTER 2018-07-22 18:40 | Emergency (ER) | payer SELFPAY ==
[~2018-07-22] VITALS: Ht 170.2 cm; Wt 56.0 kg
[2018-07-22 18:55] VITALS: BP 120/76
[2018-07-22] MEDS ORDERED: LIDOCAINE-MPF 1%, 5ML ONE (19:08)
[2018-07-22] MEDS ORDERED: LIDOCAINE 1%, 10ML INFIL ONE (19:30)
== END 2018-07-22 19:50 | disposition home or self-care (01) ==
LOC: ED 19:45
DX: L03.114 Cellulitis of left upper limb (principal); L02.414 Cutaneous abscess of left upper limb; Z86.14 Personal history of Methicillin resistant Staphylococcus aureus infection; Z88.6 Allergy status to analgesic agent; Z88.1 Allergy status to other antibiotic agents
CPT/HCPCS: 10060; 99283

== ENCOUNTER 2018-07-26 05:14 | Emergency (ER) | payer SELFPAY ==
[~2018-07-26] VITALS: Ht 167.6 cm; Wt 57.4 kg
[2018-07-26 05:18] VITALS: BP 125/78
--- NOTE | 2018-07-26 05:57 | NUR ---
ASSESSMENT MADE. CHART UP FOR MD TO SEE.
--- NOTE | 2018-07-26 06:40 | NUR ---
SEEN BY ERP. ORDERS MADE. AWAITING X RAY.
[2018-07-26] MEDS ORDERED: IBUPROFEN 200 MG TABLET ONE (07:09)
[2018-07-26] MEDS ORDERED: IBUPROFEN 200 MG TABLET PO ONE (07:30)
--- NOTE | 2018-07-26 07:38 | NUR ---
Patient/Caregiver given discharge instructions and they have confirmed that they understand the instructions. Patient ambulatory with steady gait.
--- NOTE | 2018-07-26 07:39 | NUR ---
CARE CHEST APPLICATION AND INFO GIVEN TO PATIENT.
== END 2018-07-26 07:40 | disposition home or self-care (01) ==
LOC: ED 07:28
DX: S60.222A Contusion of left hand, initial encounter (principal); X58.XXXA Exposure to other specified factors, initial encounter; Y93.89 Activity, other specified; Y92.89 Other specified places as the place of occurrence of the external cause; Y99.8 Other external cause status
CPT/HCPCS: 99283

== ENCOUNTER 2019-03-01 17:19 | Emergency (ER) | payer MEDICAID ==
[~2019-03-01] VITALS: Ht 167.6 cm; Wt 55.7 kg
[~2019-03-01 17:19] MED LIST changes: +LINE600T15 PO; -LINE600T33 PO
[2019-03-01 17:59] VITALS: BP 109/61
--- NOTE | 2019-03-01 17:59 | NUR ---
TOP LIFT SCOURER: NIL X1
--- NOTE | 2019-03-01 18:11 | NUR ---
PT HERE FOR ABSCESS TO LEFT SHOULDER. RESTING ON SANTY. NADN. PEREZ AT BEDSIDE NOW.
[2019-03-01] MEDS ORDERED: LIDOCAINE-MPF 1%, 5ML ONE (18:14)
--- NOTE | 2019-03-01 18:28 | NUR ---
PT SET UP FOR I&D
== END 2019-03-01 18:57 | disposition home or self-care (01) ==
LOC: ED 18:30
DX: L02.414 Cutaneous abscess of left upper limb (principal); F17.200 Nicotine dependence, unspecified, uncomplicated
CPT/HCPCS: 10060; 99283

== ENCOUNTER 2019-09-02 23:45 | Emergency (ER) | payer MEDICAID ==
[~2019-09-02] VITALS: Ht 170.2 cm; Wt 57.2 kg
[2019-09-02 23:55] VITALS: BP 121/77
[2019-09-03] MEDS ORDERED: CLINDAMYCIN 300 MG CAPSULE ONE (01:58)
[2019-09-03] MEDS ORDERED: LIDOCAINE-MPF 2% ,5ML ONE (01:58)
[2019-09-03] MEDS ORDERED: CLINDAMYCIN 300 MG CAPSULE PO ONE (02:00)
[2019-09-03] MEDS ORDERED: LIDOCAINE 2%, 50ML SQ ONE (02:00)
== END 2019-09-03 02:51 | disposition home or self-care (01) ==
LOC: ED 09-03 01:56
DX: L02.11 Cutaneous abscess of neck (principal); F17.200 Nicotine dependence, unspecified, uncomplicated
CPT/HCPCS: 10060; 76536

== ENCOUNTER 2020-07-15 04:15 | Emergency (ER) | payer MEDICAID ==
[~2020-07-15] VITALS: Ht 167.6 cm; Wt 54.3 kg
[2020-07-15 04:18] VITALS: BP 104/63
== END 2020-07-15 05:24 | disposition home or self-care (01) ==
LOC: ED 04:45
DX: L03.114 Cellulitis of left upper limb (principal); M25.512 Pain in left shoulder; E87.6 Hypokalemia; Z88.8 Allergy status to other drugs, medicaments and biological substances; Z88.1 Allergy status to other antibiotic agents
CPT/HCPCS: 99283

== ENCOUNTER 2020-09-24 19:54 | Emergency (ER) | payer MEDICAID ==
[~2020-09-24] VITALS: Ht 167.6 cm; Wt 56.5 kg
--- NOTE | 2020-09-24 20:20 | NUR ---
right glute "skin infection. probably an abscess" x 3 days no fevers/n/v, vss. HX OF MRSA WHERE ABSCESS IS IN RT GLUTEUS PT ATTACHED TO MONITROS. VSS. NADN. BED IN LOW POSITION. CALL LIGHT WITHIN REACH. WCTM
[2020-09-24 21:11] VITALS: BP 103/59
--- NOTE | 2020-09-24 21:18 | NUR ---
Patient/Caregiver given discharge instructions and they have confirmed that they understand the instructions. Patient ambulatory with steady gait. NAD, all questions answered appropriately, denies additional needs at this time. No personal belongings left in room after discharge.
== END 2020-09-24 21:20 | disposition home or self-care (01) ==
LOC: ED 21:01
DX: L02.31 Cutaneous abscess of buttock (principal); Z72.9 Problem related to lifestyle, unspecified; F15.10 Other stimulant abuse, uncomplicated; F17.210 Nicotine dependence, cigarettes, uncomplicated
CPT/HCPCS: 99284

== ENCOUNTER 2020-10-27 10:46 | Emergency (ER) | payer MEDICAID ==
[~2020-10-27] VITALS: Ht 170.2 cm; Wt 53.5 kg
[2020-10-27 10:48] VITALS: BP 122/81
[2020-10-27] MEDS ORDERED: LIDOCAINE-MPF 1%, 5ML INFIL ONE (11:00)
--- NOTE | 2020-10-27 11:33 | NUR ---
SPECIAL EDUCATION DIRECTOR: PT TO ROOM FROM BALA THAKUR
[2020-10-27] MEDS ORDERED: LIDOCAINE-MPF 1%, 5ML ONE (11:35)
--- NOTE | 2020-10-27 11:52 | NUR ---
TASK RN: DR.VAN QUINONES AT BEDSIDE.
== END 2020-10-27 12:39 | disposition home or self-care (01) ==
LOC: ED 11:44
DX: L02.414 Cutaneous abscess of left upper limb (principal)
CPT/HCPCS: 10060; 99283